=== PATIENT | male | born 1975 | race Hispanic/Latino ===

== ENCOUNTER 2024-11-21 13:44 | Emergency (ER) | payer BC ==
[~2024-11-21] VITALS: Ht 167.6 cm; Wt 83.5 kg
--- NOTE | 2024-11-21 16:42 | ERN ---
General Chief Complaint: Abdominal Pain Stated Complaint: HEADACHE, SOB Time Seen by MD: 13:47 History of Present Illness Initial Comments 49-year-old male, history of high cholesterol hypertension, presents for left- sided head pain, dizziness, palpitation. It is patient reports that he moved his head quickly and he felt an episode of dizziness and a headache on the left side of his head. He reports that he lost his balance. She reports she had nausea with some dizziness following. He had some palpitations and some chest discomfort. He was very brief, but it was since resolved. He recently had an ear infection. Currently he is pain-free. Allergies: Coded Allergies: No Known Allergies (Unverified Allergy, Unknown, 11/21/24) Past Medical History Past Medical History: GERD, High Cholesterol, Hypertension Past Surgical History: None ROS Dictation CONSTITUTIONAL: No chills, no fever, no weakness, no diaphoresis, no malaise. HEAD/FACE: No signs of trauma. EENT: No eye pain, no blurred vision, no tearing, no double vision, no ear pain, no ear discharge, no nose pain, no nasal congestion, no throat pain, no throat swelling, no mouth pain. RESPIRATORY: No cough, no orthopnea, no SOB, no stridor, no wheezing. CARDIOVASCULAR: Chest palpitations. GASTROINTESTINAL/ABDOMINAL: No abdominal pain, no constipation, no diarrhea, no nausea, no vomiting. GENITOURINARY: No abnormal discharge, no dysuria, no frequent urination, no hematuria. No complaints of pain in the genitals. MUSCULOSKELETAL: No back pain, no gout, no joint pain, no joint swelling, no muscle pain, no muscle stiffness, no neck pain. INTEGUMENTARY: No change in color, no change in hair/nails, no dryness, no lesion, no lumps, no rash. NEUROLOGICAL/PSYCH: Headache and dizziness HEMATOLOGIC/LYMPHATIC: Not anemic, no history of blood clots, no apparent bleeding, no bruising, glands not swollen. All Systems Negative, Except as Noted. Physical Exam Physical Exam Dictation VITAL SIGNS: Reviewed. GENERAL APPEARANCE: Alert, oriented x3, no acute distress HEAD AND FACE: Non-traumatic. EYES: PERRL, pink conjunctivas, eyelid no trauma, anterior chamber clear. EARS: Pinnas intact and no signs of trauma or erythema. Ear canals clear and no discharge. TMs no erythema. NOSE: No discharge, no bleeding. OROPHARYNX: Mouth normal, teeth no caries, tongue pink. Pharynx clear, no erythema. Tonsils no exudates, no abscesses noted. Mucous membrane moist. NECK: Supple, non-tender, no thyromegaly, no masses, no JVD, no bruits. BREAST: Deferred. CHEST: No tenderness, no crepitus, no paradoxical movement, no retractions. LUNGS: Clear, well-ventilated, symmetric, no rales, no wheezing, no rhonchi, no stridor, good breath sounds bilaterally. HEART: Regular rate, regular rhythm, no murmur, no gallops. VASCULAR: No peripheral edema. ABDOMEN: Soft, positive bowel sounds, nondistended, no guarding, nontender, no rebound, no masses no hepatomegaly, no splenomegaly, no Barrera's sign, no hernias. RECTAL: Deferred. GENITAL: Deferred. NEUROLOGICAL: Normal speech, gross motor function intact, gross sensory function intact. MUSCULOSKELETAL: Neck nontender, full range of motion, back nontender, full range of motion. EXTREMITIES: Nontender, full range of motion. SKIN: Color pink, dry, no turgor, no rash, no lacerations, no abrasions, no contusions. LYMPHATICS: Deferred. Results Laboratory and Microbiology Lab and Micro Result Laboratory Tests Test 11/21/24 16:59 Total Creatine Kinase 117 U/L (21-232) Troponin I High Sensitivity 4.2 ng/L (4-75) B-Type Natriuretic Peptide < 5 pg/mL (0-100) MDM CC: Vertigo episode and palpitations Historian: Patient Comorbidities: Hypertension, dyslipidemia Limitations by social determinants of health: Uninsured Differential diagnosis: Vertigo, brain bleed, chest pain, palpitations, other. Vital signs: Stable remained stable Clinical exam is unremarkable. Cranial nerves are intact. No signs of stroke. NIHSS is 0. EKG: Sinus rhythm, rate 96, normal axis, good R-wave progression, intervals are stable. No STEMI. Independently interpreted by me. Labs (independently ordered and interpreted by me ): CK normal, troponin normal, BNP normal. CT head, this is independently ordered and interpreted by me ): No acute bleeding or abnormality. Patient's symptoms are most consistent with vertigo. No suspicion for ACS, h eart score of two with a normal troponin. No signs of stroke normal CT head. We will DC with symptomatic support and recommend PCP follow up. ED Course Orders Procedure Category Date Status Time Cardiac Panel LAB 11/21/24 Complete 16:20 B-Type Natriuretic LAB 11/21/24 Complete Peptide 16:20 12 Lead Ekg Tracing- EKG 11/21/24 Complete Technical 16:20 Ct Head/Brain W/O CT 11/21/24 Resulted Contrast 16:20 Vital Signs Date Time Temp Pulse Resp B/P (MAP) Pulse Ox O2 Delivery O2 Flow Rate FiO2 11/21/24 14:00 97.9 106 20 129/90 98 Room Air 0 DX & DISP Disposition: Discharge Departure Impression: Primary Impression: Episodic peripheral vertigo Condition: Stable Additional Instructions: Your symptoms are most consistent with a vertigo episode. As we discussed, this is benign and comes from the inner ear. You EKGs normal. Your blood work ( BNP, troponin, CK) is unremarkable. There was very low chance that this is a cardiac cause of your symptoms today. The CT scan of your brain is unremarkable. There are no signs of brain abnormalities. If you continue with symptoms, I recommend he follow up with the primary doctor. Please return to the emergency department if you have any concerns. Referrals: SELF,REFERRAL (PCP) DIONICIO BERGMAN DO Nov 21, 2024 16:42
--- NOTE | 2024-11-21 16:54 | HMCIMG ---
CT HEAD/BRAIN W/O CONTRAST HISTORY: Headaches COMPARISON: None TECHNIQUE: Multiple sequential axial images of the head were obtained from the base of the skull through vertex. Patient was not given contrast through intravenous route. FINDINGS: The ventricles and extraventricular CSF spaces are nondilated for patient's age. There is no midline shift, mass effect or herniation. No acute intracranial bleed is seen. Visualized portion of the paranasal sinuses are grossly within normal limits. IMPRESSION: 1. No acute intracranial bleed is seen. CT was performed with one or more following dose reduction techniques: automated exposure control, adjustment of the mA and kv according to patient's size, or use of a iterative reconstruction technique.
--- NOTE | 2024-11-21 17:04 | EKG ---
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
[2024-11-21 18:00] VITALS: BP 118/83; PULSE 89; RESP 16; TEMP 98.1; O2SAT 98
== END 2024-11-21 18:07 | disposition home or self-care (01) ==
LOC: EDH 13:44
DX: H81.399 Other peripheral vertigo, unspecified ear (principal); K21.9 Gastro-esophageal reflux disease without esophagitis; E78.00 Pure hypercholesterolemia, unspecified; I10 Essential (primary) hypertension; Z59.71 Insufficient health insurance coverage
CPT/HCPCS: 36415; 70450; 82550; 83880; 84484; 93005; 99284